=== PATIENT | male | born 1980 | race Caucasian/White ===

== ENCOUNTER → 2017-11-07 | Outpatient (CLI) | payer BC ==
[2017-11-07 08:50] LABS: HCT 47.3 % (39.0-53.0); HGB 16.1 gm/dL (13.0-17.5); MCH 31.8 pg (25.0-35.0); MCV 93.6 fL (80.0-100.0); Mean Platelet Volume 6.6; Platelet Count 230 k/uL (150-450); RBC 5.05 m/uL (4.30-5.90); RDW 13.3 % (11.5-15.5); WBC 4.3 k/uL (3.8-10.6)
[2017-11-07 08:57] LABS: INR 1.1 (<1.2); Prothrombin Time 10.4 sec (9.0-12.0)
--- NOTE | 2017-11-07 09:02 | US ---
EXAMINATION TYPE: US liver DATE OF EXAM: 11/07/2017 COMPARISON: NONE CLINICAL HISTORY: R94.5 Increased Liver Function.; Hepatitis C; on medication for heroin addiction pe r patient EXAM MEASUREMENTS: Liver Length: 15.7 cm Gallbladder Wall: 0.2 cm CBD: 0.6 cm Right Kidney: 11.2 x 5.1 x 4.5 cm Pancreas: Tail obscured by overlying bowel gas Liver: There is slight prominence of the portal triads and coarsened hepatic echotexture that can be seen in acute phase of hepatitis. No identifiable masses on today's examination although the altered echogenicity limits evaluation for underlying hepatic masses. Gallbladder: wnl Evidence for sonographic Cruz's sign: no CBD: wnl and at upper limits of normal Right Kidney: wnl IMPRESSION: Findings that can be seen in acute hepatitis. Correlate with serum laboratory values. No focal hepatic mass appreciated on today's examination.
[2017-11-07 09:03] LABS: Albumin 4.3 g/dL (3.5-5.0); Bilirubin, Delta 0.3 mg/dL (0.0-0.2); Bilirubin,Unconjugated 1.1 mg/dL (0.0-1.1); Total Bilirubin 1.4 mg/dL (0.2-1.3); Total Protein 7.2 g/dL (6.3-8.2)
[2017-11-09 13:39] LABS: HCV Quant Log 6.91 (<1.08)
== END | disposition home or self-care (01) ==
LOC: RADUSWWP 07:49
PROVIDERS: ATTEND Internal Medicine Gastroenterology
DX: R94.5 Abnormal results of liver function studies (principal); Z86.19 Personal history of other infectious and parasitic diseases
CPT/HCPCS: 36415; 76705; 80076; 85027; 85610; 87522

== ENCOUNTER → 2018-03-06 | Outpatient (CLI) | payer BC ==
[2018-03-06 14:03] LABS: Basophils # (A) 0.1 k/uL (0-0.2); Basophils % (A) 1 %; Eosinophils # (A) 0.5 k/uL (0-0.7); Eosinophils % (A) 8 %; HCT 46.7 % (39.0-53.0); HGB 16.1 gm/dL (13.0-17.5); Lymphocytes # (A) 1.3 k/uL (1.0-4.8); Lymphocytes % (A) 20 %; MCH 31.9 pg (25.0-35.0); MCHC 34.5 g/dL (31.0-37.0); MCV 92.7 fL (80.0-100.0); Mean Platelet Volume 6.8; Monocytes # (A) 0.7 k/uL (0-1.0); Monocytes % (A) 11 %; Neutrophils # (A) 3.6 k/uL (1.3-7.7); Neutrophils % (A) 55 %; Platelet Count 203 k/uL (150-450); RBC 5.04 m/uL (4.30-5.90); RDW 12.8 % (11.5-15.5); WBC 6.4 k/uL (3.8-10.6)
[2018-03-06 20:36] LABS: Albumin 4.7 g/dL (3.80-4.90); Albumin/Globulin Ratio 1.96 (1.20-2.10); Bilirubin, Conjugated 0.2 mg/dL (0.20-0.40); Bilirubin,Unconjugated 0.7 mg/dL; Globulin 2.4 g/dL (2.1-3.7); Total Bilirubin 0.9 mg/dL (0.2-1.2); Total Protein 7.1 g/dL (6.2-8.2)
[2018-03-07 14:51] LABS: Hepatits C Virus RNA Not detected (Not detected); Hepatits C Virus RNA, Quant <12 IU/mL (<12); LOG HCV IU/mL <1.08 (<1.08)
== END | disposition home or self-care (01) ==
LOC: LABWHC1 13:13
PROVIDERS: ATTEND Physician Assistant
DX: B18.2 Chronic viral hepatitis C (principal)
CPT/HCPCS: 36415; 80076; 85025; 87522